=== PATIENT | female | born 1990 | race Caucasian/White ===

== ENCOUNTER 2024-01-13 07:52 | Outpatient (CLI) | payer BC | END 2024-01-13 07:53 | disposition home or self-care (01) | LOC: MRI 07:52 | PROVIDERS: ATTEND Internal Medicine Hepatology | DX: K83.01 Primary sclerosing cholangitis (principal); N28.1 Cyst of kidney, acquired; R16.2 Hepatomegaly with splenomegaly, not elsewhere classified | CPT/HCPCS: 74183 ==